=== PATIENT | male | born 1990 | race Caucasian/White ===

== ENCOUNTER 2017-09-25 20:59 | Emergency (ER) | payer SELFPAY ==
[~2017-09-25] VITALS: Ht 180.3 cm; Wt 77.1 kg
[2017-09-25 21:26] VITALS: BP 143/87
== END 2017-09-26 01:00 | disposition left against medical advice (07) ==
LOC: ER 20:59
DX: K08.89 Other specified disorders of teeth and supporting structures (principal); Z53.21 Procedure and treatment not carried out due to patient leaving prior to being seen by health care provider

== ENCOUNTER 2017-11-20 22:00 | Emergency (ER) | payer MEDICAID ==
[~2017-11-20] VITALS: Ht 188 cm; Wt 81.6 kg
[2017-11-20 22:35] LABS: Basophils # (auto) 0 uL; Basophils % (auto) 0.4 % (0.0-2.0); Eosinophils # (auto) 0.1 uL; Hematocrit 40.1 % (41.0-53.0); Hemoglobin 13.5 g/dL (13.5-17.5); Lymphocytes # (auto) 2.4 uL; Lymphocytes % (auto) 48.5 % (10.0-50.0); Mean Corpuscular Hgb Conc. 33.6 g/dL (32.0-36.0); Mean Corpuscular Volume 98.1 fL (80.0-100.0); Monocytes # (auto) 0.3 uL; Monocytes % (auto) 6.3 % (0.0-12.0); Neutrophils # (auto) 2.1 uL; Neutrophils % (auto) 42.8 % (37.0-80.0); Nucleated Red Blood Cells % 0.3 %; Red Blood Cells 4.09 10^6/uL (4.5-5.90); Red Cell Distribution Width 15.5 % (11.8-14.3); White Blood Cell 4.9 10^3/uL (4.4-10.8)
[2017-11-20 22:37] LABS: Platelet Count (auto) 121 10^3/uL (140-450)
[2017-11-20 22:58] LABS: Albumin 3.4 g/dL (3.4-5.0); Calcium 7.9 mg/dL (8.5-10.1); Magnesium 2.2 mg/dL (1.6-2.6); Potassium 3.1 mmol/L (3.5-5.1)
[2017-11-20 23:02] LABS: BUN/Creatinine Ratio 8.7; Bilirubin, Total 0.7 mg/dL (0.2-1.0); Total Protein 6.9 g/dL (6.4-8.2)
[2017-11-20 23:03] LABS: Acetaminophen < 2.0 ug/mL (10-30); Salicylate < 1.7 mg/dL (2.8-20.0)
[2017-11-21 02:24] LABS: Urine Bacteria NONE SEEN /hpf (None Seen); Urine Blood Negative /uL (Negative); Urine Hyaline Cast FEW /lpf (0 - 2); Urine Mucus FEW (None Seen); Urine Specific Gravity 1.011 (1.001-1.035); Urine WBC 3 /hpf (0 - 3)
[2017-11-21 02:35] LABS: Amphetamine Screen, Urine NEGATIVE (NEGATIVE); Barbiturate Scree,Urine NEGATIVE (NEGATIVE); Benzodiazephine Screen, Urine NEGATIVE (NEGATIVE); Cannabinoid Screen, Urine NEGATIVE (NEGATIVE); Cocaine Screen, Urine NEGATIVE (NEGATIVE); Opiate Scree,Urine POSITIVE (NEGATIVE); Phencyclidine Screen, Urine NEGATIVE (NEGATIVE)
[2017-11-21] MEDS ORDERED: NALOXONE HCL 0.4 MG/ML VIAL IV ONE (02:45)
[2017-11-21] MEDS ORDERED: MEPERIDINE HCL (50 MG/ML) 1 ML VIAL IV ONE (03:00)
[2017-11-21] MEDS ORDERED: MEPERIDINE HCL (50 MG/ML) 1 ML VIAL ONE (03:02)
[2017-11-21 04:00] VITALS: BP 101/59
[2017-11-21] MEDS ORDERED: POTASSIUM CHL 20 Meq TABLET PO ONE (04:15)
== END 2017-11-21 06:00 | disposition home or self-care (01) ==
LOC: ER 22:00 → EDBD 22:00 → ER 11-21 05:58
DX: T40.1X1A Poisoning by heroin, accidental (unintentional), initial encounter (principal); F10.129 Alcohol abuse with intoxication, unspecified; E87.6 Hypokalemia; F17.210 Nicotine dependence, cigarettes, uncomplicated; Y92.9 Unspecified place or not applicable
CPT/HCPCS: 36415; 80053; 80307; 80320; 80329; 81001; 83735; 85025; 93005; 96374; 96375; 99285; J2175; J2310

== ENCOUNTER 2018-03-16 15:04 | Emergency (ER) | payer MEDICAID ==
[~2018-03-16] VITALS: Ht 180.3 cm; Wt 79.4 kg
[2018-03-16] MEDS ORDERED: SODIUM CHLORIDE 0.9% 250 ML IV ONE (16:24)
[2018-03-16] MEDS ORDERED: cefTRIAXone 1GM/10ml IVPUSH 10 ML IV ONE (16:30)
[2018-03-16] MEDS ORDERED: VANCOMYCIN 1GM/250ML 250 ML IV ONE (16:30)
[2018-03-16 17:25] LABS: Basophils # (auto) 0 uL; Basophils % (auto) 0.2 % (0.0-2.0); Eosinophils # (auto) 0.1 uL; Eosinophils % (auto) 1.1 % (0.0-7.0); Hematocrit 40.5 % (41.0-53.0); Hemoglobin 13.9 g/dL (13.5-17.5); Lymphocytes # (auto) 1.6 uL; Lymphocytes % (auto) 18.1 % (10.0-50.0); Mean Corpuscular Hemoglobin 32.6 pg (28.0-32.0); Mean Corpuscular Hgb Conc. 34.4 g/dL (32.0-36.0); Mean Corpuscular Volume 94.7 fL (80.0-100.0); Monocytes # (auto) 0.6 uL; Monocytes % (auto) 6.6 % (0.0-12.0); Neutrophils # (auto) 6.7 uL; Nucleated Red Blood Cells % 0.1 %; Platelet Count (auto) 174 10^3/uL (140-450); Red Blood Cells 4.27 10^6/uL (4.5-5.90); Red Cell Distribution Width 13.7 % (11.8-14.3); White Blood Cell 9.1 10^3/uL (4.4-10.8)
[2018-03-16 17:39] LABS: Albumin 3.3 g/dL (3.4-5.0); BUN/Creatinine Ratio 8.2; Calcium 8.5 mg/dL (8.5-10.1)
[2018-03-16 17:42] LABS: Bilirubin, Total 1.8 mg/dL (0.2-1.0); Total Protein 7.5 g/dL (6.4-8.2)
[2018-03-16] MEDS ORDERED: HYDROcodone-ACET 10/325MG TAB PO ONE (17:45)
[2018-03-16 19:37] LABS: Urine Bacteria NONE SEEN /hpf (None Seen); Urine Blood Negative /uL (Negative); Urine Mucus FEW (None Seen); Urine Specific Gravity 1.012 (1.001-1.035); Urine WBC 1 /hpf (0 - 3)
[2018-03-16 21:02] VITALS: BP 131/72
== END 2018-03-16 21:28 | disposition home or self-care (01) ==
LOC: ER 15:12
DX: L02.413 Cutaneous abscess of right upper limb (principal); F17.210 Nicotine dependence, cigarettes, uncomplicated
CPT/HCPCS: 36415; 80053; 81001; 85025; 87040; 96365; 96366; 96375; 99285; J0696; J3370; J7030

== ENCOUNTER 2018-10-24 13:57 | Inpatient (IN) | payer MEDICAID ==
[~2018-10-24] VITALS: Ht 180.3 cm; Wt 71.2 kg
[2018-10-24 14:24] LABS: Basophils # (auto) 0 uL; Basophils % (auto) 0.2 % (0.0-2.0); Eosinophils # (auto) 0.1 uL; Eosinophils % (auto) 1.3 % (0.0-7.0); Hemoglobin 16.7 g/dL (13.5-17.5); Lymphocytes # (auto) 1.3 uL; Lymphocytes % (auto) 16.3 % (10.0-50.0); Mean Corpuscular Hgb Conc. 34.8 g/dL (32.0-36.0); Mean Corpuscular Volume 97.8 fL (80.0-100.0); Monocytes # (auto) 0.5 uL; Monocytes % (auto) 6.7 % (0.0-12.0); Neutrophils % (auto) 75.5 % (37.0-80.0); Platelet Count (auto) 156 10^3/uL (140-450); Red Blood Cells 4.91 10^6/uL (4.5-5.90)
[2018-10-24 14:43] LABS: Calcium 9.4 mg/dL (8.5-10.1); Potassium 3.2 mmol/L (3.5-5.1)
[2018-10-24 14:53] LABS: BUN/Creatinine Ratio 7.9; Bilirubin, Total 2.2 mg/dL (0.2-1.0); Total Protein 8.3 g/dL (6.4-8.2)
[2018-10-24] MEDS ORDERED: SODIUM CHLORIDE 0.9% 1,000 ML IV ONE ×2 (15:48)
[2018-10-24] MEDS ORDERED: PIPERACILLIN-TAZOB 3.375GM 100 ML IV ONE (16:00)
[2018-10-24] MEDS ORDERED: VANCOMYCIN 1GM/250ML 250 ML IV ONE (16:00)
[2018-10-24] MEDS ORDERED: SOD CHL 0.9%/ KCL 20MEQ 1,000 ML IV ONE (17:30)
[2018-10-24] MEDS ORDERED: POTASSIUM CHLORIDE 40 MEQ, LIDOCAINE 1% (LOCAL ANESTH.) 4 ML in SODIUM CHL 0.9% 100 ML IV ONE (17:45)
--- NOTE | 2018-10-24 18:30 | NUR ---
RECEIVED PATIENT FROM ER. PATIENT IN BED. AWAKE, ALERT, ORIENTED, RESPONSIVE TO COMMANDS. IV PRESENT TO LAC#20. S1S2 ON AUSCULTATION HR:75 PATIENT DENIES CP, SOB, PALPITATIONS, REPORTS DISCOMFORT TO ABDOMEN ALL QUADRANTS. PALPABLE PULSES TO ALL EXTREMITIES+2. NO EDEMA NOTED, PT REPORTS LAST BM: 10/24/18 NORMAL. VOIDING WITH NO DIFFICULTIES. SKIN INTACT PATIENT STATED. COMFORTABLE ENVIRONMENT PROVIDED, BED IN LOWEST POSITION, WITH WHEELS LOCKED, CALL LIGHT WITHIN REACH.
[2018-10-24] MEDS: MULTIPLE VITAMIN 10 ML, MAGNESIUM SULF SDV 50% 8 MEQ, THIAMINE INJ 100 MG in D5W/SOD CH... IV SCH (18:48)
[2018-10-24 18:49] LABS: Lactic Acid w/Reflex 2.6 mmol/L (0.4-2.0)
--- NOTE | 2018-10-24 19:15 | NUR ---
REPORT GIVEN TO ONCOMING RN. ALL QUESTIONS AND ANSWERS ADDRESSED. BANANA BAG CONTENTS NOT COMPATIBLE WITH KCL WITH LIDOCAINE. RN MADE AWARE THAT FLUIDS ARE NOT Y-SITE COMPATIBLE.
[2018-10-24 19:30] VITALS: BP 143/92
--- NOTE | 2018-10-24 20:00 | NUR ---
OPENING NOTE RECEIVED REPORT FROM DAYSHIFT RN. ASSUMING ROLE OF CARE OF PATIENT AT THIS TIME. PATIENT SHOWING NO SIGN OF DISTRESS, SHORTNESS OF BREATH, AND PATIENT STATES PAIN IS 8/10. PATIENT WILL BE MEDICATED FOR PAIN PER PROTOCOL WHEN AVAILABLE. PATIENT EDUCATED ON PLAN OF CARE FOR THE NIGHT. PATIENT VERBALIZED UNDERSTANDING. BED LOWERED, CALL LIGHT WITHIN REACH, AND PATIENT WILL BE ROUNDED ON EVERY HOUR AND NEEDED.
--- NOTE | 2018-10-24 20:03 | NUR ---
HOSPITALIST PAGED PATIENT STATING THAT PAIN IS 8/10 AFTER RECEIVING DILAUDID AT 1742. PATIENT STATES PAIN MEDICINE HAD POSSIBLY CAUSED ITCHING. PATIENT ALSO REQUESTING SLEEP MEDICATION FOR TONIGHT. WILL AWAIT CALL BACK OR ORDERS.
--- NOTE | 2018-10-24 21:00 | NUR ---
IV insertion IV access obtained, via clean sterile technique by inserting 20 gauge catheter at LEFT AC after 1 attempt(s). IV secured properly. No trauma to site. Patient tolerated well. NOTE: []
[2018-10-24] MEDS: HYDROmorphone HCL 2 MG/ML VL IV PRN (21:42)
[2018-10-24 22:00] VITALS: BP 147/89
--- NOTE | 2018-10-24 22:01 | NUR ---
HOSPITALIST PAGED AGAIN PATIENT STILL REQUESTING PAIN MEDICINE FOR BREAKTHROUGH PAIN. PATIENT ALSO REQUESTING SLEEP MEDICINE. PATIENT STATES THAT THEY USED TO TAKE AMBIEN WHICH WORKED. WILL AWAIT CALL BACK OR ORDERS.
[2018-10-24 22:40] VITALS: BP 143/92
[2018-10-24] MEDS ORDERED: ZOLPIDEM TARTRATE 5 MG TAB PO PRN (22:45)
[2018-10-24] MEDS ORDERED: MORPHINE SULF INJ 2 MG/ML SYRINGE 1ML IV ONE (22:45)
[2018-10-25] MEDS: HYDROmorphone HCL 2 MG/ML VL IV PRN ×6 (03:25→23:45)
[2018-10-25 05:06] LABS: Amphetamine Screen, Urine NEGATIVE (NEGATIVE); Barbiturate Scree,Urine NEGATIVE (NEGATIVE); Benzodiazephine Screen, Urine NEGATIVE (NEGATIVE); Cannabinoid Screen, Urine NEGATIVE (NEGATIVE); Cocaine Screen, Urine NEGATIVE (NEGATIVE); Opiate Scree,Urine POSITIVE (NEGATIVE); Phencyclidine Screen, Urine NEGATIVE (NEGATIVE)
[2018-10-25 05:21] LABS: Urine Bacteria FEW /hpf (None Seen); Urine Blood Negative /uL (Negative); Urine Mucus FEW (None Seen); Urine Specific Gravity 1.016 (1.001-1.035); Urine WBC 1 /hpf (0 - 3)
[2018-10-25 05:39] VITALS: BP 140/88
[2018-10-25 06:45] LABS: Basophils # (auto) 0 uL; Basophils % (auto) 0.3 % (0.0-2.0); Eosinophils # (auto) 0.2 uL; Eosinophils % (auto) 3.8 % (0.0-7.0); Hematocrit 40.5 % (41.0-53.0); Lymphocytes # (auto) 1.7 uL; Lymphocytes % (auto) 27.4 % (10.0-50.0); Mean Corpuscular Hgb Conc. 34.6 g/dL (32.0-36.0); Mean Corpuscular Volume 98.2 fL (80.0-100.0); Monocytes # (auto) 0.5 uL; Monocytes % (auto) 8.5 % (0.0-12.0); Neutrophils # (auto) 3.7 uL; Nucleated Red Blood Cells % 0.1 %; Platelet Count (auto) 105 10^3/uL (140-450); Red Blood Cells 4.13 10^6/uL (4.5-5.90); Red Cell Distribution Width 12.7 % (11.8-14.3); White Blood Cell 6.1 10^3/uL (4.4-10.8)
[2018-10-25 07:09] LABS: Alkaline Phosphatase 113 U/L (45-117); Bilirubin, Total 1.9 mg/dL (0.2-1.0); Lipase 2693 U/L (73-393); Total Protein 6.7 g/dL (6.4-8.2)
[2018-10-25 07:14] LABS: Anion Gap 7 (5-15); BUN/Creatinine Ratio 8.6; Blood Urea Nitrogen 5 mg/dL (7-18); Carbon Dioxide 24 mmol/L (21-32); Chloride 108 mmol/L (98-107); GFR African American 218 mL/min; GFR Non-African American 180 mL/min; Glucose 93 mg/dL (74-106); Potassium 3.5 mmol/L (3.5-5.1); Sodium 139 mmol/L (136-145)
[2018-10-25 07:15] LABS: Alanine Aminotransferase 80 U/L (16-61); Albumin 3.1 g/dL (3.4-5.0); Aspartate Aminotransferase 193 U/L (15-37); Calcium 8.6 mg/dL (8.5-10.1)
--- NOTE | 2018-10-25 08:00 | NUR ---
ASSESSMENT NOTE PT IS ALERT ORIENTED X4, RESTING IN BED COMFORTABLY, SELF REPOSITION NEEDED, AMBULATE NEEDED, PAIN 6/10 AT THIS TIME CALL LIGHT WITHIN REACH.
--- NOTE | 2018-10-25 08:45 | NUR ---
OUT TO SMOKE NO DISTRESS NOTED, AMBULATED OUT
--- NOTE | 2018-10-25 08:55 | NUR ---
PT IS BACK TO HIS ROOM, PT'S FAMILY GRECIA AT HER SIDE
[2018-10-25] MEDS: NICOTINE 21MG/24 HR TOPICAL PATCH TD SCH (09:13)
[2018-10-25] MEDS: LORazepam 2MG/ML-1ML VIAL IV PRN ×2 (09:20→14:50)
[2018-10-25 09:48] VITALS: BP 130/83
[2018-10-25] MEDS: SODIUM CHLORIDE 0.9% 1,000 ML IV SCH ×2 (12:30→22:30)
[2018-10-25 13:04] VITALS: BP 139/97
[2018-10-25] MEDS: MULTIPLE VITAMIN 10 ML, MAGNESIUM SULF SDV 50% 8 MEQ, THIAMINE INJ 100 MG in D5W/SOD CH... IV SCH (13:04)
[2018-10-25] MEDS ORDERED: LORazepam 2MG/ML-1ML VIAL IV PRN (15:30)
[2018-10-25 17:30] VITALS: BP 145/91
--- NOTE | 2018-10-25 18:32 | NUR ---
PT CONTINUE ON PAIN MANAGEMENT AT ALL TIMES, PT'S FRIEND GRECIA AT BED SIDE AT ALL TIMES.
--- NOTE | 2018-10-25 20:00 | NUR ---
OPENING NOTE RECEIVED REPORT FROM DAYSHIFT RN. ASSUMING ROLE OF CARE OF PATIENT AT THIS TIME. PATIENT SHOWING NO SIGN OF DISTRESS, SHORTNESS OF BREATH, AND PATIENT DENIES ANY PAIN AT THIS TIME. PATIENT EDUCATED ON PLAN OF CARE FOR THE NIGHT AND PATIENT VERBALIZED UNDERSTANDING. BED LOWERED, CALL LIGHT WITHIN REACH, AND PATIENT WILL BE ROUNDED ON EVERY HOUR AND NEEDED.
[2018-10-25 21:20] VITALS: BP 143/93
[2018-10-26 05:00] VITALS: BP 134/87
[2018-10-26 07:01] LABS: Basophils # (auto) 0 uL; Basophils % (auto) 0.3 % (0.0-2.0); Eosinophils # (auto) 0.3 uL; Eosinophils % (auto) 4.8 % (0.0-7.0); Hematocrit 40.4 % (41.0-53.0); Hemoglobin 14.1 g/dL (13.5-17.5); Lymphocytes # (auto) 1.6 uL; Mean Corpuscular Hgb Conc. 34.8 g/dL (32.0-36.0); Mean Corpuscular Volume 97.6 fL (80.0-100.0); Monocytes # (auto) 0.4 uL; Monocytes % (auto) 7.4 % (0.0-12.0); Neutrophils # (auto) 3.5 uL; Neutrophils % (auto) 59.5 % (37.0-80.0); Nucleated Red Blood Cells % 0.1 %; Platelet Count (auto) 97 10^3/uL (140-450); Red Blood Cells 4.14 10^6/uL (4.5-5.90); Red Cell Distribution Width 13.1 % (11.8-14.3); White Blood Cell 5.8 10^3/uL (4.4-10.8)
[2018-10-26 07:10] LABS: Albumin 3.1 g/dL (3.4-5.0); Calcium 8.5 mg/dL (8.5-10.1); Magnesium 2.4 mg/dL (1.6-2.6); Potassium 3.3 mmol/L (3.5-5.1)
[2018-10-26 07:21] LABS: Bilirubin, Total 1.3 mg/dL (0.2-1.0); Total Protein 6.9 g/dL (6.4-8.2)
[2018-10-26 07:23] LABS: BUN/Creatinine Ratio 5.3
--- NOTE | 2018-10-26 07:30 | NUR ---
Report received. Patient is alert and oriented. Patient has no complaints at this time. No S/S distress. Call light in reach. Will continue to monitor.
[2018-10-26 07:37] VITALS: BP 130/85
[2018-10-26 08:59] LABS: Hepatitis B Surface Antibody Negative
[2018-10-26 09:32] LABS: Hepatitis A Total Antibody Positive
[2018-10-26] MEDS: NICOTINE 21MG/24 HR TOPICAL PATCH TD SCH (10:00)
--- NOTE | 2018-10-26 10:30 | NUR ---
Dr. Santa in to see patient as hospitalist.
[2018-10-26 10:41] LABS: Hepatitis B Core Total AB Negative; Hepatitis B Surface Antigen Negative (Negative)
[2018-10-26 10:44] LABS: Hepatitis C Antibody Positive (Negative)
[2018-10-26] MEDS: HYDROmorphone HCL 2 MG/ML VL IV PRN (10:52)
--- NOTE | 2018-10-26 11:15 | NUR ---
Received call from Lab that patient is Hepatitic C positive. Dr. Santa informed. She informed patient.
--- NOTE | 2018-10-26 11:30 | NUR ---
Patient stztes he has been informed that his son is sick and he needs to sign himself out. Dr. Santa informed.
--- NOTE | 2018-10-26 11:55 | NUR ---
AMA form signed. IV X 2 removed. Pressure dressings to site.
--- NOTE | 2018-10-26 12:02 | NUR ---
AMA Note MECHELLE BONDS states they want to leave the hospital Against Medical Advice (AMA). Patient encouraged to stay for further treatment/stabilization. Dr. Santa notified of patient's wishes. Patient advised of the risks and benefits of leaving AMA. Patient verbalized understanding. Patient encouraged to return to the ER if symptoms do not improve or worsen.
== END 2018-10-26 12:02 | disposition left against medical advice (07) | DRG 282 ==
LOC: ER 13:57 → OVERFLOW 17:32 → CENTRAL 18:33
PROVIDERS: ADMIT Nurse Practitioner Acute Care; ATTEND Internal Medicine
DX: K85.20 Alcohol induced acute pancreatitis without necrosis or infection (principal); D69.59 Other secondary thrombocytopenia; K70.9 Alcoholic liver disease, unspecified; B19.20 Unspecified viral hepatitis C without hepatic coma; E87.6 Hypokalemia; F10.10 Alcohol abuse, uncomplicated; Z53.21 Procedure and treatment not carried out due to patient leaving prior to being seen by health care provider; K76.0 Fatty (change of) liver, not elsewhere classified; Z72.0 Tobacco use; Z71.41 Alcohol abuse counseling and surveillance of alcoholic; Z71.6 Tobacco abuse counseling
CPT/HCPCS: 36415; 71046; 74176; 76705; 80053; 80307; 81001; 82150; 83605; 83690; 83735; 85025; 86704; 86706; 86708; 86803; 87040; 87340; G0378; J2001; J2543

== ENCOUNTER 2020-02-11 15:51 | Emergency (ER) | payer MEDICAID ==
[~2020-02-11] VITALS: Ht 180.3 cm; Wt 81.6 kg
[2020-02-11 16:00] VITALS: BP 154/109
[2020-02-11] MEDS ORDERED: SODIUM CHLORIDE 0.9% 1,000 ML IVB ONE (16:34)
[2020-02-11] MEDS ORDERED: PANTOPRAZOLE 40 MG/10 ML VIAL INJ IV STA (16:34)
[2020-02-11] MEDS ORDERED: LORazepam 2MG/ML-1ML VIAL IV ONE (16:45)
[2020-02-11] MEDS ORDERED: MORPHINE SULFATE 4 MG/ML SYR/VIAL IV ONE (16:45)
[2020-02-11] MEDS ORDERED: ONDANSETRON HCL 4 MG/2 ML VIAL IV ONE (16:45)
== END 2020-02-11 19:03 | disposition left against medical advice (07) ==
LOC: ER 15:51
DX: K80.20 Calculus of gallbladder without cholecystitis without obstruction (principal); R10.12 Left upper quadrant pain; F17.210 Nicotine dependence, cigarettes, uncomplicated
CPT/HCPCS: 74176

== ENCOUNTER 2021-05-18 23:47 | Inpatient (IN) | payer MEDICAID ==
[~2021-05-18] VITALS: Ht 175.3 cm; Wt 73.9 kg
[2021-05-19 02:41] LABS: Basophils # (auto) 0.2 10 ^3/uL (0-0.2); Hemoglobin 15.3 g/dL (13.5-17.5); Lymphocytes # (auto) 5.5 10 ^3/uL (0.4-5.4); Red Cell Distribution Width 16.3 % (11.8-14.3)
[2021-05-19 02:44] LABS: Basophils % (auto) 1.2 % (0.0-2.0); Eosinophils # (auto) 0.2 10 ^3/uL (0-0.8); Eosinophils % (auto) 1.9 % (0.0-7.0); Hematocrit 44.9 % (41.0-53.0); Lymphocytes % (auto) 41.6 % (10.0-50.0); Mean Corpuscular Hemoglobin 34.5 pg (28.0-32.0); Mean Corpuscular Hgb Conc. 34.1 g/dL (32.0-36.0); Mean Corpuscular Volume 101.1 fL (80.0-100.0); Monocytes # (auto) 0.8 10 ^3/uL (0-1.3); Monocytes % (auto) 6.4 % (0.0-12.0); Neutrophils # (auto) 6.4 10 ^3/uL (1.6-8.6); Neutrophils % (auto) 48.9 % (37.0-80.0); Nucleated Red Blood Cells % 0.1 %; Red Blood Cells 4.44 10^6/uL (4.5-5.90); White Blood Cell 13.1 10^3/uL (4.4-10.8)
[2021-05-19 02:59] LABS: Albumin 2.9 g/dL (3.4-5.0); Calcium 8.7 mg/dL (8.5-10.1); Potassium 3.8 mmol/L (3.5-5.1)
[2021-05-19 03:00] LABS: Lactic Acid w/Reflex 3.4 mmol/L (0.4-2.0)
[2021-05-19 03:02] LABS: BUN/Creatinine Ratio 8.3
[2021-05-19 03:06] LABS: Bilirubin, Total 0.7 mg/dL (0.2-1.0); Total Protein 8.9 g/dL (6.4-8.2)
[2021-05-19 03:10] LABS: INR 1.05 (0.9-1.15)
[2021-05-19] MEDS ORDERED: SODIUM CHLORIDE 0.9% 1,000 ML IV ONE (03:30)
[2021-05-19] MEDS ORDERED: LACTULOSE 20Gm/30ML SOLN PO ONE (05:15)
[2021-05-19] MEDS ORDERED: FOLIC ACID 1 MG, MULTIPLE VITAMIN 10 ML, MAGNESIUM SULF SDV 50% 8 MEQ, THIAMINE INJ 100... INJ STA ×5 (06:42)
[2021-05-19] MEDS ORDERED: THIAMINE 100mg/ml INJ (200mg/2ml VIAL) IV ONE ×2 (07:00)
[2021-05-19] MEDS ORDERED: MORPHINE SULFATE INJECTION 2 MG/ML SYRG IV ONE (07:15)
[2021-05-19 08:40] LABS: Amphetamine Screen, Urine NEGATIVE (NEGATIVE); Barbiturate Scree,Urine NEGATIVE (NEGATIVE); Benzodiazephine Screen, Urine NEGATIVE (NEGATIVE); Cannabinoid Screen, Urine NEGATIVE (NEGATIVE); Cocaine Screen, Urine NEGATIVE (NEGATIVE); Opiate Scree,Urine NEGATIVE (NEGATIVE); Phencyclidine Screen, Urine NEGATIVE (NEGATIVE)
[2021-05-19 08:42] LABS: Folate (Folic Acid) 2.77 ng/mL (5.38-24)
[2021-05-19] MEDS ORDERED: NITROGLYCERIN 0.4 MG SL TAB SL PRN (09:00)
[2021-05-19] MEDS ORDERED: MORPHINE SULFATE INJECTION 2 MG/ML SYRG IV PRN (09:00)
[2021-05-19 09:53] LABS: Amylase 62 U/L (25-115); Lipase 56 U/L (73-393)
[2021-05-19] MEDS ORDERED: THIAMINE HCL 100 MG TAB PO SCH (10:00)
[2021-05-19] MEDS: B-COMPLEX W/ C & FOLIC ACID(NEPHROVITE TAB) PO SCH (12:18)
[2021-05-19] MEDS: PANTOPRAZOLE 40 MG TAB PO SCH (12:18)
[2021-05-19] MEDS: MORPHINE SULFATE INJECTION 2 MG/ML SYRG IV PRN ×2 (12:18→19:49)
[2021-05-19] MEDS: chlordiazePOXIDE HCL 25 MG CAP PO PRN ×2 (12:33→19:40)
[2021-05-19 12:50] VITALS: BP 140/95
[2021-05-19] MEDS ORDERED: ONDANSETRON HCL 4 MG/2 ML VIAL IV PRN (13:00)
[2021-05-19] MEDS: GABAPENTIN 300 MG CAP PO SCH ×2 (13:38→21:48)
[2021-05-19] MEDS: LABETALOL HCL 5 MG/ML 4ML SYRINGE IV PRN (13:38)
[2021-05-19] MEDS: SODIUM CHLOR 0.9% PF (SALINE LOCK) 10ML VIAL/SYR IV SCH ×2 (14:10→21:47)
[2021-05-19 17:00] VITALS: BP 125/77
[2021-05-19] MEDS: LACTULOSE 20Gm/30ML SOLN PO SCH (18:05)
[2021-05-19] MEDS: rifAXIMin 550 MG TAB PO SCH (21:48)
[2021-05-19 22:00] VITALS: BP 157/96
[2021-05-20] MEDS: LACTULOSE 20Gm/30ML SOLN PO SCH ×4 (00:19→18:44)
[2021-05-20] MEDS: MORPHINE SULFATE INJECTION 2 MG/ML SYRG IV PRN ×4 (04:11→23:11)
[2021-05-20] MEDS: chlordiazePOXIDE HCL 25 MG CAP PO PRN ×4 (04:15→23:11)
[2021-05-20 05:00] VITALS: BP 155/102
[2021-05-20] MEDS: traMADol HCL 50 MG TAB PO PRN ×2 (05:31→09:15)
[2021-05-20 06:01] LABS: Mean Corpuscular Hemoglobin 34.2 pg (28.0-32.0); Monocytes # (auto) 0.6 10 ^3/uL (0-1.3); Neutrophils # (auto) 3.8 10 ^3/uL (1.6-8.6); Red Cell Distribution Width 15.8 % (11.8-14.3); White Blood Cell 7.4 10^3/uL (4.4-10.8)
[2021-05-20 06:03] LABS: Basophils # (auto) 0.1 10 ^3/uL (0-0.2); Basophils % (auto) 0.7 % (0.0-2.0); Eosinophils # (auto) 0.3 10 ^3/uL (0-0.8); Eosinophils % (auto) 3.5 % (0.0-7.0); Hematocrit 37.9 % (41.0-53.0); Hemoglobin 12.6 g/dL (13.5-17.5); Lymphocytes # (auto) 2.6 10 ^3/uL (0.4-5.4); Lymphocytes % (auto) 35.6 % (10.0-50.0); Mean Corpuscular Hgb Conc. 33.1 g/dL (32.0-36.0); Mean Corpuscular Volume 103.3 fL (80.0-100.0); Monocytes % (auto) 8.5 % (0.0-12.0); Neutrophils % (auto) 51.7 % (37.0-80.0); Nucleated Red Blood Cells % 0.1 %; Red Blood Cells 3.67 10^6/uL (4.5-5.90)
[2021-05-20] MEDS: GABAPENTIN 300 MG CAP PO SCH ×3 (06:15→21:28)
[2021-05-20] MEDS: SODIUM CHLOR 0.9% PF (SALINE LOCK) 10ML VIAL/SYR IV SCH ×3 (06:15→21:34)
[2021-05-20 06:26] LABS: Potassium 3.7 mmol/L (3.5-5.1)
[2021-05-20 06:34] LABS: Albumin 2.2 g/dL (3.4-5.0); BUN/Creatinine Ratio 15.2; Calcium 7.8 mg/dL (8.5-10.1)
[2021-05-20 06:36] LABS: Bilirubin, Total 1.4 mg/dL (0.2-1.0); Total Protein 6.3 g/dL (6.4-8.2)
[2021-05-20 08:30] VITALS: BP 159/110
[2021-05-20] MEDS: rifAXIMin 550 MG TAB PO SCH ×2 (09:15→21:27)
[2021-05-20] MEDS: PANTOPRAZOLE 40 MG TAB PO SCH (09:15)
[2021-05-20] MEDS: B-COMPLEX W/ C & FOLIC ACID(NEPHROVITE TAB) PO SCH (09:15)
[2021-05-20 13:00] VITALS: BP 155/103
[2021-05-20] MEDS: MULTIPLE VITAMIN 10 ML, MAGNESIUM SULF SDV 50% 8 MEQ, THIAMINE INJ 100 MG in SODIUM CHL... IV SCH (13:21)
[2021-05-20] MEDS: cloNIDine HCL 0.1 MG TAB PO SCH ×2 (14:15→21:27)
[2021-05-20 15:28] VITALS: BP 148/94
[2021-05-20 16:59] VITALS: BP 149/100
[2021-05-20] MEDS: LABETALOL HCL 5 MG/ML 4ML SYRINGE IV PRN (17:50)
[2021-05-20 22:00] VITALS: BP 152/99
[2021-05-21] MEDS: LACTULOSE 20Gm/30ML SOLN PO SCH ×4 (00:03→18:01)
[2021-05-21 05:00] VITALS: BP 135/92
[2021-05-21] MEDS: SODIUM CHLOR 0.9% PF (SALINE LOCK) 10ML VIAL/SYR IV SCH ×3 (05:42→23:11)
[2021-05-21] MEDS: cloNIDine HCL 0.1 MG TAB PO SCH ×3 (05:43→23:10)
[2021-05-21] MEDS: GABAPENTIN 300 MG CAP PO SCH ×3 (05:44→23:10)
[2021-05-21] MEDS: chlordiazePOXIDE HCL 25 MG CAP PO PRN ×2 (05:46→12:06)
[2021-05-21] MEDS: MORPHINE SULFATE INJECTION 2 MG/ML SYRG IV PRN ×3 (05:46→20:31)
[2021-05-21 09:00] VITALS: BP 131/77
[2021-05-21] MEDS: B-COMPLEX W/ C & FOLIC ACID(NEPHROVITE TAB) PO SCH (09:53)
[2021-05-21] MEDS: PANTOPRAZOLE 40 MG TAB PO SCH (09:53)
[2021-05-21] MEDS: rifAXIMin 550 MG TAB PO SCH ×2 (09:53→23:10)
[2021-05-21] MEDS: MULTIPLE VITAMIN 10 ML, MAGNESIUM SULF SDV 50% 8 MEQ, THIAMINE INJ 100 MG in SODIUM CHL... IV SCH (12:04)
[2021-05-21 13:00] VITALS: BP 146/99
[2021-05-21 17:00] VITALS: BP 132/95
[2021-05-21 20:00] VITALS: BP 133/77
[2021-05-21 22:00] VITALS: BP 133/77
[2021-05-22] MEDS: LACTULOSE 20Gm/30ML SOLN PO SCH ×3 (00:09→12:00)
[2021-05-22] MEDS: MORPHINE SULFATE INJECTION 2 MG/ML SYRG IV PRN (04:39)
[2021-05-22 05:00] VITALS: BP 127/84
[2021-05-22] MEDS: GABAPENTIN 300 MG CAP PO SCH (06:25)
[2021-05-22] MEDS: SODIUM CHLOR 0.9% PF (SALINE LOCK) 10ML VIAL/SYR IV SCH (06:26)
[2021-05-22] MEDS: cloNIDine HCL 0.1 MG TAB PO SCH (06:26)
[2021-05-22 08:37] VITALS: BP 117/73
[2021-05-22] MEDS ORDERED: RIFA550T PO (09:17)
[2021-05-22] MEDS ORDERED: GABA300C10 PO (09:17)
[2021-05-22] MEDS ORDERED: CLON0.1T PO (09:17)
[2021-05-22] MEDS ORDERED: PANT40T PO (09:17)
[2021-05-22] MEDS ORDERED: LACT10SO3 PO (09:17)
[2021-05-22] MEDS ORDERED: FOLITAB23 OR (09:18)
[2021-05-22] MEDS: B-COMPLEX W/ C & FOLIC ACID(NEPHROVITE TAB) PO SCH (10:31)
[2021-05-22] MEDS: PANTOPRAZOLE 40 MG TAB PO SCH (10:31)
[2021-05-22] MEDS: rifAXIMin 550 MG TAB PO SCH (10:31)
[2021-05-22] MEDS: traMADol HCL 50 MG TAB PO PRN (10:37)
[2021-05-22 11:04] VITALS: BP 117/68
[2021-05-22] MEDS: MULTIPLE VITAMIN 10 ML, MAGNESIUM SULF SDV 50% 8 MEQ, THIAMINE INJ 100 MG in SODIUM CHL... IV SCH (12:00)
== END 2021-05-22 12:45 | disposition home or self-care (01) | DRG 48 ==
LOC: ER 23:50 → TELE 05-19 08:51 → TELE-CENTR 05-19 10:48 → CENTRAL 05-22 09:07
PROVIDERS: ADMIT Internal Medicine; ATTEND Internal Medicine
DX: G62.1 Alcoholic polyneuropathy (principal); E87.2 Acidosis; K72.90 Hepatic failure, unspecified without coma; E44.0 Moderate protein-calorie malnutrition; F10.129 Alcohol abuse with intoxication, unspecified; F10.139 Alcohol abuse with withdrawal, unspecified; F17.210 Nicotine dependence, cigarettes, uncomplicated; Z20.822 Contact with and (suspected) exposure to COVID-19; R00.0 Tachycardia, unspecified; E53.8 Deficiency of other specified B group vitamins; Z68.24 Body mass index [BMI] 24.0-24.9, adult
CPT/HCPCS: 36415; 70450; 71045; 72131; 72146; 72148; 76705; 80053; 80307; 80320; 82140; 82150; 82550; 82607; 82746; 83605; 83690; 83735; 84484; 85025; 85610; 86703; 86803; 87426; 93005; 96361; 96365; 96375; 97110; 97116; 97162; 97530; G0378; J3490

== ENCOUNTER 2021-09-01 14:13 | Inpatient (IN) | payer MEDICAID ==
[~2021-09-01] VITALS: Ht 180.3 cm; Wt 69.9 kg
[~2021-09-01 14:13] MED LIST: CLON0.1T PO; FOLITAB23 OR; GABA300C10 PO; LACT10SO3 PO; PANT40T PO; RIFA550T PO
[2021-09-01] MEDS ORDERED: VANCOMYCIN 1GM/250ML 250 ML IV ONE (16:30)
[2021-09-01] MEDS ORDERED: ACETAMINOPHEN 325 MG TAB PO ONE (16:30)
[2021-09-01] MEDS ORDERED: LACTATED RINGER'S 2,000 ML IV ONE (16:30)
[2021-09-01 20:35] LABS: Basophils # (auto) 0.1 10 ^3/uL (0-0.2); Basophils % (auto) 0.4 % (0.0-2.0); Eosinophils # (auto) 0 10 ^3/uL (0-0.8); Eosinophils % (auto) 0.3 % (0.0-7.0); Hematocrit 43.8 % (41.0-53.0); Hemoglobin 15.2 g/dL (13.5-17.5); Lymphocytes # (auto) 2.1 10 ^3/uL (0.4-5.4); Lymphocytes % (auto) 14.8 % (10.0-50.0); Mean Corpuscular Hemoglobin 30.8 pg (28.0-32.0); Mean Corpuscular Hgb Conc. 34.6 g/dL (32.0-36.0); Mean Corpuscular Volume 88.9 fL (80.0-100.0); Monocytes # (auto) 1.4 10 ^3/uL (0-1.3); Monocytes % (auto) 9.9 % (0.0-12.0); Neutrophils # (auto) 10.6 10 ^3/uL (1.6-8.6); Neutrophils % (auto) 74.6 % (37.0-80.0); Nucleated Red Blood Cells % 0.1 %; Red Blood Cells 4.93 10^6/uL (4.5-5.90); Red Cell Distribution Width 12.5 % (11.8-14.3); White Blood Cell 14.2 10^3/uL (4.4-10.8)
[2021-09-01] MEDS ORDERED: ACETAMINOPHEN 325 MG TAB PO PRN (20:45)
[2021-09-01] MEDS ORDERED: ONDANSETRON HCL 4 MG/2 ML VIAL IV PRN (20:45)
[2021-09-01] MEDS ORDERED: VANCOMYCIN PER PHARMACY 0 MG IV SCH (20:45)
[2021-09-01] MEDS ORDERED: IOHEXOL 300 MG/ML 100ML BOTTLE IJ ONE (20:45)
[2021-09-01] MEDS ORDERED: SODIUM CHLORIDE 0.9% 1,000 ML IV ONE (20:45)
[2021-09-01 21:01] LABS: Albumin 3.2 g/dL (3.4-5.0); BUN/Creatinine Ratio 13.7; Calcium 8.9 mg/dL (8.5-10.1); Potassium 3.4 mmol/L (3.5-5.1)
[2021-09-01 21:04] LABS: Bilirubin, Total 1.3 mg/dL (0.2-1.0); Total Protein 8.2 g/dL (6.4-8.2)
[2021-09-01 22:42] LABS: INR 1.22 (0.9-1.15)
[2021-09-01] MEDS ORDERED: KETOROLAC TROMETH 30 MG/ML 1ML VIAL IV PRN (22:45)
[2021-09-02] VITALS (7 sets, daily range): BP systolic 89–103; BP diastolic 55–66
[2021-09-02] MEDS: MORPHINE SULFATE 4 MG/ML SYR/VIAL IV PRN ×3 (01:14→20:22)
[2021-09-02 01:58] LABS: Alcohol, Urine < 3.0 mg/dL (0-10); Amphetamine Screen, Urine NEGATIVE (NEGATIVE); Barbiturate Scree,Urine NEGATIVE (NEGATIVE); Benzodiazephine Screen, Urine NEGATIVE (NEGATIVE); Cannabinoid Screen, Urine NEGATIVE (NEGATIVE); Cocaine Screen, Urine NEGATIVE (NEGATIVE); Opiate Scree,Urine POSITIVE (NEGATIVE); Phencyclidine Screen, Urine NEGATIVE (NEGATIVE)
[2021-09-02] MEDS: SODIUM CHLORIDE 0.9% 1,000 ML IV SCH ×3 (02:00→21:59)
[2021-09-02] MEDS: VANCOMYCIN 1GM/250ML 250 ML IV SCH ×3 (05:00→21:58)
[2021-09-02] MEDS: ENOXAPARIN SOD 40 MG/0.4 ML SYRINGE SC SCH (09:53)
[2021-09-02] MEDS: PANTOPRAZOLE 40 MG TAB PO SCH (09:53)
[2021-09-02] MEDS: HYDROcodone-ACET 5/325MG TAB PO PRN ×2 (09:53→14:59)
[2021-09-02] MEDS ORDERED: fentaNYL CITRATE 100 MCG/2 ML VL ONE ×2 (16:04→16:06)
[2021-09-02] MEDS ORDERED: MIDAZOLAM HCL 2MG/2ML 2ml VIAL (1mg/ml) ONE (16:04)
[2021-09-02] MEDS ORDERED: LIDOCAINE 2% (LOCAL ANESTH.) PF 5ml SDV ONE ×2 (16:32→16:56)
[2021-09-02] MEDS ORDERED: ONDANSETRON HCL 4 MG/2 ML VIAL ONE (16:32)
[2021-09-02] MEDS ORDERED: PROPOFOL 10 MG/ML 20 ML IV ONE (16:32)
[2021-09-02] MEDS ORDERED: ceFAZolin 1GM VL ONE (16:34)
[2021-09-02] MEDS ORDERED: HYDROmorphone HCL 2 MG/ML VL IV PRN ×2 (17:15)
[2021-09-02] MEDS ORDERED: ONDANSETRON HCL 4 MG/2 ML VIAL IV PRN (17:15)
[2021-09-03] MEDS: HYDROcodone-ACET 5/325MG TAB PO PRN ×2 (03:10→16:50)
[2021-09-03 05:00] VITALS: BP 93/58
[2021-09-03] MEDS: VANCOMYCIN 1GM/250ML 250 ML IV SCH ×3 (06:23→22:07)
[2021-09-03] MEDS: SODIUM CHLORIDE 0.9% 1,000 ML IV SCH ×3 (06:28→23:30)
[2021-09-03 09:00] VITALS: BP 92/56
[2021-09-03] MEDS: PANTOPRAZOLE 40 MG TAB PO SCH (10:14)
[2021-09-03] MEDS: ENOXAPARIN SOD 40 MG/0.4 ML SYRINGE SC SCH (10:15)
[2021-09-03] MEDS: MORPHINE SULFATE 4 MG/ML SYR/VIAL IV PRN (10:41)
[2021-09-03 13:00] VITALS: BP 107/71
[2021-09-03 17:00] VITALS: BP 108/63
[2021-09-03 20:00] VITALS: BP 92/54
[2021-09-03 21:59] VITALS: BP 92/59
[2021-09-04] VITALS (7 sets, daily range): BP systolic 88–105; BP diastolic 57–67
[2021-09-04 06:42] LABS: Potassium 3.2 mmol/L (3.5-5.1)
[2021-09-04] MEDS: VANCOMYCIN 1GM/250ML 250 ML IV SCH ×2 (06:47→18:00)
[2021-09-04 06:52] LABS: BUN/Creatinine Ratio 9.8; Calcium 8.4 mg/dL (8.5-10.1)
[2021-09-04] MEDS: HYDROcodone-ACET 5/325MG TAB PO PRN (08:48)
[2021-09-04] MEDS: PANTOPRAZOLE 40 MG TAB PO SCH (10:00)
[2021-09-04] MEDS: ENOXAPARIN SOD 40 MG/0.4 ML SYRINGE SC SCH (10:00)
[2021-09-04] MEDS: SODIUM CHLORIDE 0.9% 1,000 ML IV SCH (23:45)
[2021-09-05] MEDS: SODIUM CHLORIDE 0.9% 1,000 ML IV SCH ×3 (03:30→16:25)
[2021-09-05] MEDS: HYDROcodone-ACET 5/325MG TAB PO PRN ×2 (03:38→08:27)
[2021-09-05 05:00] VITALS: BP 104/69
[2021-09-05] MEDS: VANCOMYCIN 1GM/250ML 250 ML IV SCH (06:23)
[2021-09-05 09:00] VITALS: BP 117/73
[2021-09-05] MEDS: ENOXAPARIN SOD 40 MG/0.4 ML SYRINGE SC SCH (10:00)
[2021-09-05] MEDS: PANTOPRAZOLE 40 MG TAB PO SCH (10:00)
[2021-09-05] MEDS ORDERED: levoFLOXacin 500MG 100 ML IV ONE (10:30)
[2021-09-05] MEDS ORDERED: MORPHINE SULFATE 4 MG/ML SYR/VIAL IV PRN (10:45)
[2021-09-05 13:00] VITALS: BP 98/62
[2021-09-05 17:00] VITALS: BP 107/67
[2021-09-05 22:06] VITALS: BP 102/66
[2021-09-06] MEDS: SODIUM CHLORIDE 0.9% 1,000 ML IV SCH ×3 (00:45→09:05)
[2021-09-06 05:00] VITALS: BP 120/84
[2021-09-06 09:00] VITALS: BP 117/79
[2021-09-06] MEDS: ENOXAPARIN SOD 40 MG/0.4 ML SYRINGE SC SCH (10:00)
[2021-09-06] MEDS: PANTOPRAZOLE 40 MG TAB PO SCH (10:00)
[2021-09-06] MEDS: levoFLOXacin 500MG 100 ML IV SCH (10:00)
[2021-09-06 12:29] VITALS: BP 100/67
[2021-09-06 17:00] VITALS: BP 117/85
[2021-09-06 20:00] VITALS: BP 118/74
[2021-09-06 22:00] VITALS: BP_SYST 109; BP_SYST 118; BP_DIAS 55; BP_DIAS 74
[2021-09-07] MEDS: SODIUM CHLORIDE 0.9% 1,000 ML IV SCH ×2 (04:10→06:32)
[2021-09-07 05:00] VITALS: BP 117/75
[2021-09-07 08:00] VITALS: BP 118/74
[2021-09-07] MEDS: levoFLOXacin 500MG 100 ML IV SCH (10:44)
[2021-09-07] MEDS: ENOXAPARIN SOD 40 MG/0.4 ML SYRINGE SC SCH (10:45)
[2021-09-07] MEDS: PANTOPRAZOLE 40 MG TAB PO SCH (10:45)
[2021-09-07] MEDS ORDERED: HYDR-4902 PO (11:31)
[2021-09-07] MEDS ORDERED: LEVO500T31 PO (11:31)
[2021-09-07 16:44] VITALS: BP 123/80
== END 2021-09-07 18:15 | disposition home or self-care (01) | DRG 710 ==
LOC: ER 14:13 → OVERFLOW 20:45 → WEST WING 23:05
PROVIDERS: ADMIT Internal Medicine; ATTEND Family Medicine
PROC: 0K9P00Z Drainage of Left Hip Muscle with Drainage Device, Open Approach (ICD-10-PCS; principal; 2021-09-02 16:02)
DX: A41.9 Sepsis, unspecified organism (principal); F10.10 Alcohol abuse, uncomplicated; L02.31 Cutaneous abscess of buttock; L03.317 Cellulitis of buttock; Z20.822 Contact with and (suspected) exposure to COVID-19; F17.210 Nicotine dependence, cigarettes, uncomplicated; Z82.49 Family history of ischemic heart disease and other diseases of the circulatory system; Z71.6 Tobacco abuse counseling
CPT/HCPCS: 36415; 74177; 80048; 80053; 80202; 80307; 82565; 83605; 84443; 85025; 85610; 87040; 87070; 87075; 87077; 87186; 87205; 93005; 96361; 96365; G0378; J0690; J1956; J2001; J2250; J2405; J2704

== ENCOUNTER 2023-10-23 04:15 | Inpatient (IN) | payer MEDICAID ==
[~2023-10-23] VITALS: Ht 180.3 cm; Wt 70.0 kg
[~2023-10-23 04:15] MED LIST changes: +GABA-1250 PO; -GABA300C10 PO; +HYDR-4902 PO; +LEVO500T31 PO
[2023-10-23 09:21] VITALS: BP 130/83; PULSE 77; RESP 16; TEMP 97.5; O2SAT 100
[2023-10-23] MEDS ORDERED: ACETAMINOPHEN 325 MG TAB PO PRN (11:15)
[2023-10-23] MEDS ORDERED: THIAMINE HCL 100 MG TAB PO ONE (11:15)
[2023-10-23] MEDS ORDERED: ONDANSETRON HCL 4 MG/2 ML VIAL IV PRN (11:15)
[2023-10-23] MEDS ORDERED: DOCUSATE SOD 100 MG CAP PO PRN (11:15)
[2023-10-23] MEDS ORDERED: MULTIPLE VITAMIN TAB PO ONE (11:15)
[2023-10-23] MEDS ORDERED: MORPHINE SULFATE INJ 2 MG/ml SYRG IV PRN (11:15)
[2023-10-23] MEDS ORDERED: FOLIC ACID 1 MG TAB PO ONE (11:15)
[2023-10-23] MEDS ORDERED: LORazepam 2MG/ML-1ML VIAL IV PRN (11:15)
[2023-10-23] MEDS ORDERED: HYDROcodone-ACET 10/325MG TAB PO PRN (11:15)
[2023-10-23] MEDS ORDERED: HYDROcodone-ACET 5/325MG TAB PO PRN (11:15)
[2023-10-23] MEDS ORDERED: SODIUM CHLORIDE 0.9% 1,000 ML IV ONE (11:15)
[2023-10-23] MEDS ORDERED: NITROGLYCERIN 0.4 MG SL TAB SL PRN (11:15)
[2023-10-23] MEDS ORDERED: PANTOPRAZOLE 40 MG TAB PO ONE (11:30)
[2023-10-24] MEDS ORDERED: PANTOPRAZOLE 40 MG TAB PO SCH (10:00)
[2023-10-24] MEDS ORDERED: THIAMINE HCL 100 MG TAB PO SCH (10:00)
[2023-10-24] MEDS ORDERED: MULTIPLE VITAMIN TAB PO SCH (10:00)
[2023-10-24] MEDS ORDERED: FOLIC ACID 1 MG TAB PO SCH (10:00)
== END 2023-10-23 13:41 | disposition left against medical advice (07) | DRG 52 ==
LOC: ER 04:15 → EDBD 04:15 → OVERFLOW 11:12
PROVIDERS: ADMIT Nurse Practitioner Family; ATTEND Nurse Practitioner Family
DX: G92.9 Unspecified toxic encephalopathy (principal); S09.90XA Unspecified injury of head, initial encounter; F10.10 Alcohol abuse, uncomplicated; F17.210 Nicotine dependence, cigarettes, uncomplicated; Y90.9 Presence of alcohol in blood, level not specified; S01.511A Laceration without foreign body of lip, initial encounter; W18.39XA Other fall on same level, initial encounter; R04.0 Epistaxis; Y93.89 Activity, other specified; Z79.891 Long term (current) use of opiate analgesic; Z79.899 Other long term (current) drug therapy; Y92.89 Other specified places as the place of occurrence of the external cause; Y99.8 Other external cause status
CPT/HCPCS: 36415; 70450; 70486; 72125; 80320; G0378

== ENCOUNTER 2024-08-27 13:49 | Emergency (ER) | payer MEDICAID ==
[~2024-08-27] VITALS: Ht 182.9 cm; Wt 68.0 kg
--- NOTE | 2024-08-27 13:57 | ED.PDOC ---
Altered Mental Status HPI Comments 33 year old male brought in by EMS presents to the ED with a chief complaint of ALOC onset today (08/27/24). Per EMS, they were called by due to patient being altered and trespassing personal property. Patient was placed on restraints due to being altered, agitated. EMS was able to speak to , obtain patient's name and , no PMHx. Patient is altered, not able to answer questions. Time Seen by MD: 13:50 Primary Care Provider: UNKNOWN Reviewed Notes: Medications, Allergies Allergies: Coded Allergies: NO KNOWN ALLERGIES (Unverified , 10/24/18) Home Meds Active Scripts Hydrocodone-Acetaminophen (Hydrocodone Bitartrate/AC 5-325 mg) 1 Tab Tab, 1 TAB PO Q6HR PRN, #30 TAB Prov:SHEEBA MONTERO MD 09/07/21 Levofloxacin (Levaquin) 500 Mg Tab, 500 MG PO DAILY, #10 TAB Prov:SHEEBA MONTERO MD 09/07/21 Folic Acid-Vitamin B6-Vitamin (B Complex/Folic Acid) Tab, 1 TAB OR DAILY for 90 Days, #90 TAB Prov:GATO PALUMBO MD 05/22/21 Lactulose (Lactulose) 10 Gm/15 Ml Tana, 30 ML PO BID for 30 Days, #1800 ML Lactulose 30 ml po bid, keep 3-4 bowel movement per day Prov:GATO PALUMBO MD 05/22/21 Pantoprazole Sodium Sesquihydr (Pantoprazole Sodium) 40 Mg Tab, 40 MG PO DAILY for 30 Days, #30 TAB Prov:GATO PALUMBO MD 05/22/21 Gabapentin (Gabapentin) 300 Mg Cap, 300 MG PO TID for 30 Days, #90 CAP Prov:GATO PALUMBO MD 05/22/21 Rifaximin (Xifaxan) 550 Mg Tab, 550 MG PO BID for 30 Days, #60 TAB Prov:GATO PALUMBO MD 05/22/21 Clonidine Hydrochloride (Clonidine Hcl) 0.1 Mg Tab, 0.1 MG PO BID for 30 Days, #60 TAB Prov:GATO PALUMBO MD 05/22/21 Information Source: Emergency Med Personnel Mode of Arrival: EMS Severity: Moderate Timing: Hours Duration: Since onset Prehospital treatment: Restraints Quality: Change in Behavior Recent: None History of: None Associated Signs and Symptoms: None Past Medical History PAST MEDICAL HISTORY: Denies Surgical History: Denies all surgeries Family History Family History: Reviewed,noncontributory to illness, No family hx of Cancer, No family hx of DM Social History Smoker: Cigarettes, Less Than 1 Pack/Day Alcohol: Occasionally Drugs: Denies Drug Use Lives In: Home Unable to Obtain due to: Altered Mental Status Physical Exam General Appearance: Moderate Distress HEENT: Normal ENT Inspection, Pharynx Normal, TMs Normal Neck: Full Range of Motion, Non-Tender, Normal, Normal Inspection Respiratory: Chest Non-Tender, Lungs Clear, No Accessory Muscle Use, No Respiratory Distress, Normal Breath Sounds Cardiovascular: No Edema, No JVD, No Murmur, No Gallop, Normal Peripheral Pulses, Regular Rate/Rhythm Breast Exam: Deferred Gastrointestinal: No Organomegaly, Non Tender, No Pulsatile Mass, Normal Bowel Sounds, Soft Genitalia: Deferred Pelvic: Deferred Rectal: Deferred Extremities: Normal inspection, No pedal edema Musculoskeletal : Apperance: Normal Neurologic: Disoriented, No Motor Deficits, No Sensory Deficits Cerebellar Function: NOT DONE Reflexes: NOT DONE Skin: Dry, Normal Color, Warm Peripheral Pulses: 3+ Radial (R), 3+ Radial (L) Lymphatic: No Adenopathy Was a procedure done? Was a procedure done?: No Differential Diagnosis (ALOC) Differential Diagnosis: Dehydration, Hypoglycemia, Encephalopathy X-Ray, Labs, Meds, VS Vital Signs Date Time Temp Pulse Resp B/P (MAP) Pulse Ox O2 Delivery O2 Flow Rate FiO2 08/27/24 16:00 91 08/27/24 15:45 97 16 107/74 (85) 95 08/27/24 15:34 95 14 95 Room Air* 0 21 08/27/24 15:30 97 15 108/72 (84) 95 08/27/24 15:15 104 16 127/95 (106) 97 08/27/24 15:00 105 19 95 08/27/24 13:55 98.6 71 18 154/107 (123) 97 Current Medications Medications (Trade) Dose Ordered Sig/Kiki Route Start Time Stop Time Status Last Admin Lorazepam (Ativan Inj) 1 mg ONCE ONCE IM 08/27/24 14:15 08/27/24 14:16 DC 08/27/24 14:30 Diphenhydramine HCl (Benadryl Injection) 25 mg ONCE ONCE IM 08/27/24 14:15 08/27/24 14:16 DC 08/27/24 14:31 Haloperidol Lactate (Haldol) 10 mg ONCE ONCE IM 08/27/24 14:30 08/27/24 14:31 DC 08/27/24 14:31 Patient disoriented. Had to use Ativan. Benadryl. Haldol. Unknown why he has psychosis. Psychiatric evaluation after he is medically cleared. Time of 1ST Reevaluation: 14:20 Reevaluation 1ST: Unchanged Patient Education/Counseling: Diagnosis, Treatment, Prognosis Family Education/Counseling: No Family Present Departure 1 Departure Time of Disposition: 17:41 Impression: Primary Impression: Metabolic encephalopathy Additional Impression: Psychosis Qualified Codes: F29 - Unspecified psychosis not due to a substance or known physiological condition Disposition: ADMITTED INPATIENT Admit to: Med Surg Condition: Guarded Critical Care Note Critical Care Time?: No Stability Stability form required: No Heart Score Heart Score: Heart Score Response (Comments) Value History N/A 0 EKG N/A 0 Age N/A 0 Risk Factors N/A 0 Troponin N/A 0 Total 0 I personally scribed for SALOME BARRIOS MD ([email or web address]) on 08/27/24 at 13:57. Electronically submitted by Neha Musa ([email or web address]). SALOME BARRIOS MD Aug 27, 2024 13:57
[2024-08-27] MEDS: LORazepam 2MG/ML-1ML VIAL IM ONE (14:30)
[2024-08-27] MEDS: diphenhdrAMINE HCL 50 MG/1 ML VL IM ONE (14:31)
[2024-08-27] MEDS: HALOPERIDOL LACTATE 5 MG/ML INJ VIAL IM ONE (14:31)
[2024-08-27 15:34] VITALS: PULSE 95; RESP 14; O2SAT 95
[2024-08-27 20:12] VITALS: PULSE 95; RESP 14; O2SAT 96
[2024-08-28] MEDS: IBUPROFEN 800 MG TAB PO ONE ×2 (00:50→01:00)
[2024-08-28 06:00] VITALS: PULSE 92
[2024-08-28 08:15] VITALS: RESP 20; O2SAT 97
[2024-08-28 09:00] VITALS: BP 119/83
== END 2024-08-28 10:42 | disposition home or self-care (01) ==
LOC: ER 13:49 → EDBD 13:49 → ER 08-28 10:42
DX: G93.41 Metabolic encephalopathy (principal); F29 Unspecified psychosis not due to a substance or known physiological condition; F17.210 Nicotine dependence, cigarettes, uncomplicated; Z79.899 Other long term (current) drug therapy
CPT/HCPCS: 96372; 99285; J1200; J1630; J2060